=== PATIENT | female | born 2000 | race Caucasian/White ===

== ENCOUNTER 2025-06-21 07:05 | Outpatient (CLI) | payer BC, SELFPAY ==
--- NOTE | 2025-06-21 07:15 | CRLHL7_ITS ---
For Patients: As a result of the Century Cures Act, medical imaging exams and procedure reports are released immediately into your electronic medical record. You may view this report before your referring provider. If you have questions, please contact your health care provider. OB ULTRASOUND FIRST TRIMESTER TRANSABDOMINAL INDICATION: Dating and viability. TECHNIQUE: Real time kennedy scale imaging of the fetus was performed. Transabdominal imaging performed. LMP: 04/16/2025. MICHELLE by LMP: 01/21/2026. GA: 9 w, 3 d. Previous US: No. CRL: 2.9 cm. 9 w 5 d. MICHELLE: 01/19/2026. FHR: 178 BPM. Gestational sac: 3.9 cm. Appears within normal limits. Yolk sac: 5.3 mm. Appears within normal limits. Right ovary: Within normal limits. 4.1 x 0.3 x 2.6 cm. CL. Left ovary: Within normal limits. 3.5 x 2.4 x 2.6 cm. IMPRESSION: 1. Single living intrauterine measures 9 weeks 5 days with sonographic due date 01/19/2026. 2. Subchorionic hemorrhage measures 2.7 x 0.8 x 2.8 cm. 3. Corpus luteal cyst right ovary. Kelvin Harrison M.D. Diagnostic Radiologist [email or web address] SP/Dictated by: Kelvin Harrison MD @ 06/21/2025 8:25:00 AM (Electronically Signed)
== END 2025-06-21 07:06 | disposition home or self-care (01) ==
PROVIDERS: Visit Provider Advanced Practice Midwife
DX: O20.9 Hemorrhage in early pregnancy, unspecified (principal); O26.891 Other specified pregnancy related conditions, first trimester; O34.81 Maternal care for other abnormalities of pelvic organs, first trimester; N83.11 Corpus luteum cyst of right ovary; Z3A.09 9 weeks gestation of pregnancy
CPT/HCPCS: 76801

== ENCOUNTER 2025-06-21 08:37 | Outpatient (CLI) | payer BC, SELFPAY | END 2025-06-21 08:38 | disposition home or self-care (01) | PROVIDERS: Visit Provider Advanced Practice Midwife | DX: Z34.93 Encounter for supervision of normal pregnancy, unspecified, third trimester (principal) | CPT/HCPCS: 83020; 83021; 85660; 86703; 86704; 86706; 86762; 86780; 86787; 86803; 86850; 86900; 86901; 87086; 87340 ==